=== PATIENT | male | born 1970 | race Caucasian/White ===

== ENCOUNTER 2024-10-26 13:09 | Emergency (ER) | payer OTHER, BC ==
[2024-10-26] VITALS (9 sets, daily range): BP systolic 103–119; BP diastolic 69–80
[~2024-10-26] VITALS: Ht 182.9 cm; Wt 99.7 kg
[~2024-10-26 13:09] MED LIST: AMOXICILLIN500 MG PO; AMOXICILLIN875 MG PO; ANTIVERT12.5 MG PO; DEBROX6.5 % AD; ENALAPRIL10 MG PO; ENALAPRIL20 MG PO; LOPRESSOR 550 MG/TAB PO; METFORMIN1000 MG PO; METFORMIN500 MG PO; METHOCARBAMOL500 MG PO; METO50TA52 PO; METOPROLOL TART50 MG PO; METOPROLOL50 M1 PO; TAM75CAP PO; TYLENOL500 MG PO
== END 2024-10-26 16:13 | disposition home or self-care (01) | DRG 605 ==
LOC: ED 13:09
DX: S40.012A Contusion of left shoulder, initial encounter (principal); S40.011A Contusion of right shoulder, initial encounter; I10 Essential (primary) hypertension; E11.9 Type 2 diabetes mellitus without complications; F17.200 Nicotine dependence, unspecified, uncomplicated; W31.89XA Contact with other specified machinery, initial encounter; Y99.0 Civilian activity done for income or pay; Z79.84 Long term (current) use of oral hypoglycemic drugs